=== PATIENT | male | born 2000 | race Caucasian/White ===

== ENCOUNTER 2024-07-24 14:29 | Emergency (ER) | payer OTHER, SELFPAY ==
[2024-07-24 14:32] VITALS: BP 151/99; PULSE 86; TEMP 36.7; O2SAT 100; BMI 24.4
--- NOTE | 2024-07-24 14:52 | ED_ITS ---
HPI HPI - General Adult General Chief complaint: Headache Stated complaint: CONFUSION, BRIGHT VISION, HEADACHE, NECK PAIN, NUM Time Seen by Provider: 07/24/24 14:35 Source: patient Mode of arrival: walk-in History of Present Illness HPI narrative: 24 year old male presents to the ED for a headache, nausea. Reports N/T to his hands and feet. States his vision is brighter. Onset was yesterday. Denies fever, emesis, diarrhea, CP, SOB. Denies injury. 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 Related Data Home Medications ?Medication ?Instructions ?Recorded ?Confirmed dextroamphetamine-amphetamine 12.5 25 mg PO DAILY 07/24/24 07/24/24 mg tablet (Adderall) trazodone 50 mg tablet 50 mg PO QPM 07/24/24 07/24/24 Previous Rx's ?Medication ?Instructions ?Recorded edgldmgmqj-uzzbfkfexujbh-[id number] 1 tab PO Q8H PRN pain #10 tabs 07/24/24 50 mg-325 mg-40 mg tablet Allergies Allergy/AdvReac Type Severity Reaction Status Date / Time No Known Drug Allergies Allergy Verified 07/24/24 14:37 Opioid HPI Opioid Management Most Recent Opioid Data: No Data to Display Review of Systems ROS Constitutional Reports: fatigue; Denies: fever Ears, nose, mouth, and throat Reports: nasal discharge; Denies: throat pain, neck pain, difficulty swallowing, ear pain, ear discharge or nasal congestion Cardiovascular Denies: chest pain Respiratory Denies: shortness of breath or cough Gastrointestinal Reports: nausea; Denies: abdominal pain, vomiting or diarrhea Genitourinary Denies: painful urination or urinary frequency Musculoskeletal Denies: back pain or neck pain Integumentary/Breast Denies: rash Neurological Reports: headache and numbness in extremities; Denies: weakness in extremities or dizziness PFSH PFSH Social History Little interest or pleasure in doing things: not at all Feeling down, depressed, or hopeless: not at all Exam Constitutional Vital Signs, click to edit/add: Last Vital Signs Temp 98.1 F 07/24/24 14:32 Pulse 78 07/24/24 16:20 Resp 16 07/24/24 14:32 BP 136/86 07/24/24 16:20 Pulse Ox 99 07/24/24 16:20 O2 Del Method Room Air 07/24/24 14:32 Common normals: no apparent distress and oriented x3 General appearance: cooperative HENMT Common normals: external ears normal, moist oral mucous membranes and oropharynx normal Mouth: oral and palatal mucosa normal, lip normal and tongue normal Throat: posterior oropharynx normal and uvula midline Eye Common normals: PERRL, EOMs intact bilaterally, conjunctivae normal and no scleral icterus Neck & C-Spine Common normals: full ROM, supple and no meningeal signs Chest Chest: symmetrical chest wall rise Respiratory Common normals: normal respiratory effort and no use of accessory muscles Effort & inspection: able to speak in complete sentences and symmetric chest movement Cardio Common normals: regular rate and regular rhythm Neuro Common normals: oriented x3, CN's II-XII intact bilaterally, moves all extremi ties and no focal motor deficits Sensorium/orientation: awake and alert Speech: speech normal Motor exam: strength 5/5 throughout Course Vital Signs Vital signs: Vital Signs Temperature 98.1 F 07/24/24 14:32 Pulse Rate 86 07/24/24 14:32 Respiratory Rate 16 07/24/24 14:32 Blood Pressure 151/99 H 07/24/24 14:32 Pulse Oximetry 100 07/24/24 14:32 Oxygen Delivery Method Room Air 07/24/24 14:32 Temperature 98.1 F 07/24/24 14:32 Pulse Rate 78 07/24/24 16:20 Respiratory Rate 16 07/24/24 14:32 Blood Pressure 136/86 07/24/24 16:20 Pulse Oximetry 99 07/24/24 16:20 Oxygen Delivery Method Room Air 07/24/24 14:32 Medical Decision Making [facility] Narrative Medical decision making narrative: CT scan of the head was negative for acute findings. Laboratory studies were unremarkable. He was given medication for his headache with improvement. Fin dings were discussed. OARRS was reviewed. A prescription was provided for Fioricet. Follow up with pcp for a recheck, further evaluation and treatment. Medical Records Medical records reviewed: Yes I reviewed the patient's medical records Lab Data Lab results reviewed: Yes I reviewed the patient's lab results Labs: Lab Results 07/24/24 Range/Units 15:08 WBC 9.8 (4.0-11.0) 10^3/uL RBC 4.36 L (4.70-6.10) 10^6/uL Hgb 14.0 (14.0-18.0) g/dL Hct 41.0 L (42.0-54.0) % MCV 94.0 (80.0-94.0) fL MCH 32.1 (25.9-34.0) pg MCHC 34.1 (29.9-35.2) g/dL RDW 11.9 (11.0-15.0) % Plt Count 226 (150-450) 10^3/uL MPV 11.1 (9.5-13.5) fL Neut % (Auto) 83.5 H (43.0-75.0) % Lymph % (Auto) 8.0 L (20.5-60.0) % [place] % (Auto) 7.3 (1.7-12.0) % Eos % (Auto) 0.6 L (0.9-7.0) % Baso % (Auto) 0.3 (0.2-2.0) % Neut # (Auto) 8.2 H (1.4-6.5) 10^3/uL Lymph # (Auto) 0.8 L (1.2-3.8) 10^3/uL [place] # (Auto) 0.7 (0.3-0.8) 10^3/uL Eos # (Auto) 0.1 (0.0-0.7) 10^3/uL Baso # (Auto) 0.0 (0.0-0.1) 10^3/uL Abs Immat Gran (auto) 0.03 (0.00-0.03) 10^3/uL Imm/Tot Granulo (auto) 0.3 (0.0-0.5) % Sodium 139 (136-145) mmol/L Potassium 3.9 (3.5-5.1) mmol/L Chloride 102 (98-107) mmol/L Carbon Dioxide 29.2 (21.0-32.0) mmol/L Anion Gap 11.7 BUN 13.0 (7.0-18.0) mg/dL Creatinine 1.02 (0.70-1.30) mg/dL Est GFR ( Amer) >60 (>=60 mL/min/1.73m^2) Est GFR (Non-Af Amer) >60 (>=60 mL/min/1.73m^2) BUN/Creatinine Ratio 12.7 Glucose 89 (74-106) mg/dL Calcium 9.6 (8.5-10.1) mg/dL Total Bilirubin 1.0 (0.2-1.0) mg/dL AST 14 L (15-37) U/L ALT 24 (16-63) U/L Alkaline Phosphatase 53 (46-116) U/L Total Protein 7.5 (6.4-8.2) g/dL Albumin 4.4 (3.4-5.0) g/dL Globulin 3.1 g/dL Albumin/Globulin Ratio 1.[address] scan - head: Attestation: I have reviewed the pertinent imaging results. Radiologist's impression: No acute intracranial process. Discharge Plan Discharge Chief Complaint: Headache Clinical Impression: Headache, Paresthesias Patient Disposition: Home, Self-Care Time of Disposition Decision: 16:30 Condition: Good Mode of Transportation: Private Vehicle Prescriptions / Home Meds: New cyqdruovlz-takojvjygqtps-apzy 50-325-40 mg tablet 1 tab PO Q8H PRN (Reason: pain) Qty: 10 0RF No Action dextroamphetamine-amphetamine [Adderall] 12.5 mg tablet 25 mg PO DAILY trazodone 50 mg tablet 50 mg PO QPM Print Language: [place] Instructions: Acute Headache (ED), Paresthesia (ED) Additional Instructions: Return to the ER for worsening symptoms. Referrals: Physician,Non-Staff, MD [Primary Care Provider] - 1 week Discharge Date/Time: 07/24/24 16:51
[2024-07-24] MEDS: 0.9 % SODIUM CHLORIDE 1,000 ML 999 ML IV (15:11)
[2024-07-24 15:22] LABS: Basophils Percent Auto 0.3 % (0.2-2.0); Eosinophils Absolute Auto 0.1 10^3/uL (0.0-0.7); Eosinophils Percent Auto 0.6 % (0.9-7.0); Immature Granulocytes Abs Auto 0.03 10^3/uL (0.00-0.03); Immature Granulocytes Pct Auto 0.3 % (0.0-0.5); Lymphocytes Absolute Auto 0.8 10^3/uL (1.2-3.8); Mean Corpuscular HGB Conc 34.1 g/dL (29.9-35.2); Mean Corpuscular Hemoglobin 32.1 pg (25.9-34.0); Mean Platelet Volume 11.1 fL (9.5-13.5); Monocytes Absolute Auto 0.7 10^3/uL (0.3-0.8); Monocytes Percent Auto 7.3 % (1.7-12.0); Neutrophils Absolute Auto 8.2 10^3/uL (1.4-6.5); Neutrophils Percent Auto 83.5 % (43.0-75.0); Platelet Count 226 10^3/uL (150-450); Red Blood Count 4.36 10^6/uL (4.70-6.10); Red Cell Distribution Width 11.9 % (11.0-15.0); White Blood Count 9.8 10^3/uL (4.0-11.0)
[2024-07-24] MEDS: METOCLOPRAMIDE HCL 10 MG/2 ML VIAL IVP (15:31)
[2024-07-24] MEDS: DIPHENHYDRAMINE HCL 50 MG/ML VIAL 25 MG IVP (15:31)
[2024-07-24] MEDS: DEXAMETHASONE SOD PHOS 10 MG/ML VIAL IV (15:32)
[2024-07-24 15:47] LABS: Alanine Aminotransferase 24 U/L (16-63); Albumin Globulin Ratio 1.4; Albumin Level 4.4 g/dL (3.4-5.0); Alkaline Phosphatase 53 U/L (46-116); Anion Gap 11.7; Aspartate Amino Transferase 14 U/L (15-37); BUN Creatinine Ratio 12.7; Calcium 9.6 mg/dL (8.5-10.1); Carbon Dioxide 29.2 mmol/L (21.0-32.0); Chloride 102 mmol/L (98-107); Estimated GFR (African America >60 (>=60 mL/min/1.73m^2); Estimated GFR (Non-African Ame >60 (>=60 mL/min/1.73m^2); Globulin 3.1 g/dL; Glucose 89 mg/dL (74-106); Potassium 3.9 mmol/L (3.5-5.1); Sodium 139 mmol/L (136-145); Total Protein 7.5 g/dL (6.4-8.2)
[2024-07-24 16:20] VITALS: BP 136/86; PULSE 78; O2SAT 99
== END 2024-07-24 16:51 | disposition home or self-care (01) ==
PROVIDERS: Nurse Practitioner Family; Emergency Provider Emergency Medicine
DX: R51.9 Headache, unspecified (principal); R20.2 Paresthesia of skin
CPT/HCPCS: 36415; 70450; 80053; 85025; 96374; 96375; 99285; J1100; J1200; J2765